=== PATIENT | male | born 1975 | race Caucasian/White ===

== ENCOUNTER 2016-05-11 18:30 | Emergency (ER) | payer SELFPAY ==
[~2016-05-11] VITALS: Ht 162.6 cm; Wt 72.6 kg
[2016-05-11 18:34] VITALS: BP 124/72
--- NOTE | 2016-05-11 18:36 | NUR ---
PT. TAKES UNKNOWN SEIZURE MEDICATION
--- NOTE | 2016-05-11 19:50 | NUR ---
PATIENT LEFT WITHOUT BEING SEEN BY DR. HAMMER. NO FURTHER CARE PROVIDED FOR PATIENT.
== END 2016-05-11 19:50 | disposition left against medical advice (07) ==
LOC: MED 18:30
DX: R55 Syncope and collapse (principal); Z53.21 Procedure and treatment not carried out due to patient leaving prior to being seen by health care provider